=== PATIENT | male | born 1990 | race African-American/Black ===

== ENCOUNTER 2022-03-23 23:30 | Inpatient (IN) | payer OTHER ==
[2022-03-24 00:01] VITALS: BMI 22.3
[2022-03-24] MEDS ORDERED: MAGNESIUM HYDROX 2400MG/30ML ORAL SUSPENSION 30 ML CUP PO PRN (00:39)
[2022-03-24] MEDS ORDERED: MAG HYDROX/AL HYDROX/SIMETH 30 ML UNIT-DOSE CUP PO PRN (00:39)
[2022-03-24] MEDS ORDERED: POLYETHYLENE GLYCOL (HEALTHYLAX) 3350 17 GM PACKET PO PRN (00:39)
[2022-03-24] MEDS ORDERED: ACETAMINOPHEN 325 MG TABLET (FP) PO PRN ×2 (00:39)
[2022-03-24] MEDS ORDERED: METHOCARBAMOL 500 MG TABLET PO PRN (00:39)
[2022-03-24] MEDS ORDERED: NALOXONE HCL (KLOXXADO) 8 MG SPRAY NS PRN (00:39)
[2022-03-24] MEDS ORDERED: ONDANSETRON *ODT* 4 MG TABLET SL PRN (00:39)
[2022-03-24] MEDS ORDERED: BISMUTH SUBSALICYLATE 524 MG/30 ML PO PRN (00:39)
[2022-03-24] MEDS ORDERED: BENZOCAINE/MENTHOL (CHLORASEPTIC ) LOZENGE MM PRN (00:39)
[2022-03-24] MEDS ORDERED: DICYCLOMINE HCL 10 MG CAPSULE PO PRN (00:39)
[2022-03-24] MEDS ORDERED: IBUPROFEN 600 MG TABLET (FP) PO PRN (00:39)
[2022-03-24] MEDS ORDERED: LOPERAMIDE HCL 2 MG CAPSULE PO PRN (00:39)
[2022-03-24] MEDS ORDERED: IBUPROFEN 400 MG TABLET (FP) PO PRN (00:39)
[2022-03-24 08:48] VITALS: RESP 16
[2022-03-24] MEDS ORDERED: PRENATAL VITAMINS W/ FOLIC ACID TABLET (FP) PO SCH (10:00)
[2022-03-24 12:36] VITALS: BP 107/67; PULSE 93; TEMP 98.4
[2022-03-24] MEDS ORDERED: THIAMINE HCL 100 MG TABLET (FP) PO SCH (22:00)
[2022-03-24] MEDS ORDERED: MELATONIN 5 MG TABLETS PO SCH (22:00)
== END 2022-03-24 15:19 | disposition home or self-care (01) | DRG 775 ==
LOC: YASAS 23:30 → Y3N 03-24 00:41
PROVIDERS: ADMIT Allergy & Immunology; ATTEND Allergy & Immunology
PROC: HZ2ZZZZ Detoxification Services for Substance Abuse Treatment (ICD-10-PCS; principal; 2022-03-24)
DX: F10.20 Alcohol dependence, uncomplicated (principal); F12.20 Cannabis dependence, uncomplicated; F32.A Depression, unspecified; Z87.891 Personal history of nicotine dependence
CPT/HCPCS: 93005; 93010; C9803-CS; U0003; U0005

== ENCOUNTER 2022-04-24 08:38 | Emergency (ER) | payer OTHER ==
[2022-04-24 09:05] VITALS: BP 118/59; PULSE 101; RESP 20; TEMP 98; BMI 22.3
[2022-04-24] MEDS ORDERED: IBUPROFEN 600 MG TABLET (FP) PO ONE ×2 (10:26→10:31)
== END 2022-04-24 11:16 | disposition home or self-care (01) ==
LOC: JER 08:38
DX: M25.571 Pain in right ankle and joints of right foot (principal)
CPT/HCPCS: 73610-TC-RT-FY; 73630-TC-RT-FY; 99284-25